=== PATIENT | female | born 1980 ===

== ENCOUNTER 2022-12-15 19:07 | Inpatient (IN) | payer OTHER ==
[~2022-12-15] VITALS: Ht 160 cm; Wt 94.3 kg
[2022-12-15] MEDS ORDERED: IRBESARTAN300 MG PO (19:41)
[2022-12-15] MEDS ORDERED: JARDIANCE10 MG PO (19:41)
[2022-12-15] MEDS ORDERED: KAPSPARGO SPRI100 MG PO (19:41)
[2022-12-15] MEDS ORDERED: SIMETHICONE80 MG PO (19:42)
[2022-12-15] MEDS ORDERED: KAPVAY0.1 MG PO (19:42)
[2022-12-15] MEDS ORDERED: HUMALOG100 UNIT/2 SQ (19:42)
[2022-12-15] MEDS ORDERED: LANTUS SOL100 UNIT/1 SQ (19:42)
--- NOTE | 2022-12-15 19:48 | NUR ---
PTE ALERTA Y ORIENTADA X3, REFIERE QUE AMADOR TENIDO ALREDEDOR DE 12 EPISODIOS DE VOMITOS.
--- NOTE | 2022-12-15 20:08 | NUR ---
SE ORIENTA PTE SOBRE TX MEDICO EL CUAL REFIERE ENTENDER.SE LE EXTRAEN MUESTRAS BAJO MEDIDAS ASEPTICAS.SE CANALIZA Y SE ADMINISTRAN MEDICAMENTOS ALICIA ORDEN MEDICA.
--- NOTE | 2022-12-16 00:43 | NUR ---
SE RECIBE TURNO CON PTE ALERTA Y ORIENTADA X3 EN BEV EN MARSHALL NIVEL MAS BAJO. SE OBSERVA CON BUEN PATRON RESPIRATORIO Y PIEL TIBIA AL TACTO. PTE CON IV MEZA- NTE Y AC DE EDEMA Y ERITEMA CON UN 0.9NSS @150ML. PTE LISTA PARA REEVALUAR.
--- NOTE | 2022-12-16 04:25 | NUR ---
SE ADMINISTRA MEDICAMENTOS ALICIA ORDEN MEDICA Y SIGUIENDO MEDIDAS ASEPTICAS.
--- NOTE | 2022-12-16 07:14 | NUR ---
SE RECIBE PTE ALERTA ORIENTADA X3 EN BEV CON BARANDAS ELEVADAS POR MARSHALL SEGURIDAD.VENOPUNCION PATENTE AC DE EDEMA Y ERITEMA RECIBIENDO 0.9 NSS BAJANDO A 100 ML/HR.CONSULTADA CON DR.ALEXIS GREGORY PENDIENTE A ADMISION.
== END 2022-12-20 14:43 | disposition home or self-care (01) | DRG 392 ==
LOC: ER 19:07 → SEC-K 12-16 12:03 → MEDI 12-16 12:03
PROVIDERS: ADMIT Specialist; ATTEND Specialist
PROC: 02HV33Z Insertion of Infusion Device into Superior Vena Cava, Percutaneous Approach (ICD-10-PCS; principal; 2022-12-18)
DX: K52.9 Noninfective gastroenteritis and colitis, unspecified (principal); E11.43 Type 2 diabetes mellitus with diabetic autonomic (poly)neuropathy; K31.84 Gastroparesis; Z79.4 Long term (current) use of insulin; N61.1 Abscess of the breast and nipple

== ENCOUNTER 2022-12-23 06:40 | Emergency (ER) | payer OTHER ==
[~2022-12-23] VITALS: Ht 160 cm; Wt 94.3 kg
[~2022-12-23 06:40] MED LIST: HUMALOG100 UNIT/2 SQ; IRBESARTAN300 MG PO; JARDIANCE10 MG PO; KAPSPARGO SPRI100 MG PO; KAPVAY0.1 MG PO; LANTUS SOL100 UNIT/1 SQ; SIMETHICONE80 MG PO
== END 2022-12-23 22:31 | disposition home or self-care (01) ==
LOC: ER 06:40
DX: K52.89 Other specified noninfective gastroenteritis and colitis (principal); E13.43 Other specified diabetes mellitus with diabetic autonomic (poly)neuropathy; K31.84 Gastroparesis; R11.10 Vomiting, unspecified; I10 Essential (primary) hypertension; Z88.6 Allergy status to analgesic agent; Z88.8 Allergy status to other drugs, medicaments and biological substances

== ENCOUNTER 2022-12-29 19:02 | Emergency (ER) | payer OTHER ==
[~2022-12-29] VITALS: Ht 160 cm; Wt 94.3 kg
[2022-12-30] MEDS ORDERED: PROMETHAZINE HC25 M1 RECTAL (06:33)
== END 2022-12-30 06:39 ==
LOC: ER 19:02
DX: E11.43 Type 2 diabetes mellitus with diabetic autonomic (poly)neuropathy (principal); K31.84 Gastroparesis; Z79.4 Long term (current) use of insulin; Z79.84 Long term (current) use of oral hypoglycemic drugs; Z88.8 Allergy status to other drugs, medicaments and biological substances

== ENCOUNTER 2023-02-02 20:22 | Emergency (ER) | payer OTHER ==
[~2023-02-02] VITALS: Ht 160 cm; Wt 98.9 kg
[~2023-02-02 20:22] MED LIST changes: +PROMETHAZINE HC25 M1 RECTAL
== END 2023-02-03 12:17 | disposition home or self-care (01) ==
LOC: ER 20:22
DX: E11.43 Type 2 diabetes mellitus with diabetic autonomic (poly)neuropathy (principal); K31.84 Gastroparesis; Z79.4 Long term (current) use of insulin; Z88.8 Allergy status to other drugs, medicaments and biological substances; I10 Essential (primary) hypertension